=== PATIENT | female | born 1945 | race Native Hawaiian/Other Pacific Islander ===

== ENCOUNTER 2016-07-10 15:32 | Emergency (ER) | payer OTHER ==
[~2016-07-10] VITALS: Ht 162.6 cm; Wt 54.4 kg
[~2016-07-10 15:32] MED LIST: ALPR0.2566 PO; ATEN25TA21 PO; CIPR500T PO; CIPRO500 MG PO; COUMADIN5 MG PO; DIGO0.2549 PO; DIGOXIN0.25 MG PO; HYDR-3182 PO; LEVAQUIN500 MG OR; LEXAPRO10 MG PO; METO50TA27 PO; MIRAPEX0.25 MG PO; NEURONTIN 100M100 MG PO; OXYC5TAB53 PO; PRAMIPEXOLE0.5 MG PO; RANITIDINE 150150 MG PO; REQUIP XL2 MG PO; RYBIX ODT50 MG PO; SOTALOL AF80 MG PO; SYNTHROID175 MCG PO; TIZA4TAB5 PO; TOPAMAX100 MG PO; TOPAMAX50 MG PO; TRAM50TA PO; TRIM800T12 PO; VASOTEC10 MG PO; XARELTO20 MG PO
[2016-07-10 15:40] VITALS: TEMP 97.7
[2016-07-10 16:25] LABS: PLATELET COUNT 225 K/uL (152-353)
[2016-07-10 16:55] LABS: PARTIAL THROMBOPLASTIN TIME 22.7 SECONDS (24.5-33.6)
[2016-07-10 19:59] VITALS: BP 144/74
== END 2016-07-10 20:08 | disposition home or self-care (01) ==
LOC: ED 15:32
DX: M43.16 Spondylolisthesis, lumbar region (principal); M12.88 Other specific arthropathies, not elsewhere classified, other specified site; M54.31 Sciatica, right side
CPT/HCPCS: 36415; 80053; 85027; 85610; 85730; 99284

== ENCOUNTER 2016-08-11 12:01 | Emergency (ER) | payer OTHER ==
[~2016-08-11] VITALS: Ht 170.2 cm; Wt 54.9 kg
[2016-08-11 12:05] VITALS: TEMP 98.1
[2016-08-11 12:59] LABS: PLATELET COUNT 236 K/uL (152-353)
[2016-08-11 13:59] LABS: POTASSIUM 3.1 mmol/L (3.6-5.2); SODIUM 141 mmol/L (136-145)
[2016-08-11 14:45] VITALS: BP 148/72
== END 2016-08-11 14:45 | disposition home or self-care (01) ==
LOC: ED 12:01
DX: J06.9 Acute upper respiratory infection, unspecified (principal)
CPT/HCPCS: 80053; 85027; 87081; 87804; 87880; 96360; 96374; 96375; 99284; J1100; J1885

== ENCOUNTER 2016-10-15 11:48 | Observation (INO) | payer OTHER ==
[~2016-10-15] VITALS: Ht 170.2 cm; Wt 59.6 kg
[2016-10-15 12:00] VITALS: BP 129/96; TEMP 98
[2016-10-15 12:49] LABS: PLATELET COUNT 255 K/uL (152-353)
[2016-10-15 12:55] LABS: POTASSIUM 3.8 mmol/L (3.6-5.2); SODIUM 142 mmol/L (136-145)
[2016-10-15 13:00] VITALS: BP 168/80
[2016-10-15 13:29] LABS: PARTIAL THROMBOPLASTIN TIME 22.5 SECONDS (24.5-33.6)
[2016-10-15 14:00] VITALS: BP 180/79
[2016-10-15 14:45] VITALS: BP 166/78
[2016-10-15 16:19] VITALS: BP 151/84; TEMP 98.1; Ht 170.2 cm; Wt 59.6 kg
[2016-10-15] MEDS ORDERED: GABA300C2 PO (17:14)
[2016-10-15] MEDS ORDERED: CLON0.5T36 PO (17:16)
[2016-10-15] MEDS ORDERED: PRAMIPEXOLE1 MG PO (17:19)
[2016-10-15 20:00] VITALS: BP 131/65; TEMP 97.7
[2016-10-16] VITALS: BP 114/73; TEMP 97.5
[2016-10-16 04:00] VITALS: BP 122/62; TEMP 98.4
[2016-10-16 05:21] LABS: PLATELET COUNT 233 K/uL (152-353)
[2016-10-16 05:31] LABS: POTASSIUM 3.1 mmol/L (3.6-5.2); SODIUM 142 mmol/L (136-145)
[2016-10-16 08:00] VITALS: BP 123/69; TEMP 98
[2016-10-16 12:00] VITALS: BP 141/76; TEMP 97.7
--- NOTE | 2016-10-16 12:05 | NUR ---
BHAVESH WITH [facility] CALLED AND FACE SHEET FAXED REQUESTED. STATED SHE WOULD CALL NURSE BACK.
--- NOTE | 2016-10-16 14:00 | NUR ---
BHAVESH WITH [facility] CALLED BACK WITH ROOM ASSIGNMENT ROOM NUMBER [id number] PCU. EMS NOTIFIED AT THIS TIME
--- NOTE | 2016-10-16 14:51 | NUR ---
REPORT GIVEN TO BRADLEY AT [facility] IN [facility] AT THIS TIME.
--- NOTE | 2016-10-16 15:48 | NUR ---
PT LEFT VIA STRETCHER WITH EMS AT THIS TIME. NAD NOTED
== END 2016-10-16 15:50 | disposition short-term general hospital (02) ==
LOC: ED 11:48 → MED/SURG 14:10
PROVIDERS: Emergency Medicine
DX: R07.89 Other chest pain (principal); R53.1 Weakness; I48.2 Chronic atrial fibrillation; I10 Essential (primary) hypertension; M79.7 Fibromyalgia; E03.8 Other specified hypothyroidism
CPT/HCPCS: 36415; 80053; 81000; 82550; 82553; 83735; 84443; 84484; 85027; 85610; 85730; 86318; 93005; 94760; 96372; 96374; 99220; 99284; G0378; J1650

== ENCOUNTER 2016-10-16 15:57 | Outpatient (CLI) | payer OTHER ==
[~2016-10-16 15:57] MED LIST changes: +CLON0.5T36 PO; +GABA300C2 PO; +PRAMIPEXOLE1 MG PO
== END 2016-10-16 17:18 | disposition short-term general hospital (02) ==
LOC: AMB 15:57
DX: R07.89 Other chest pain (principal); R53.1 Weakness; I48.2 Chronic atrial fibrillation; I10 Essential (primary) hypertension; M79.7 Fibromyalgia; E03.8 Other specified hypothyroidism
CPT/HCPCS: A0425; A0427

== ENCOUNTER 2016-10-22 10:08 | Outpatient (CLI) | payer OTHER ==
[2016-10-22 10:58] LABS: POTASSIUM 4.7 mmol/L (3.6-5.2); SODIUM 141 mmol/L (136-145)
== END 2016-10-22 19:03 | disposition home or self-care (01) ==
LOC: LABW 10:08
PROVIDERS: Physician Assistant
DX: Z79.899 Other long term (current) drug therapy (principal); Z51.81 Encounter for therapeutic drug level monitoring
CPT/HCPCS: 36415; 80048

== ENCOUNTER 2016-11-12 11:06 | Outpatient (CLI) | payer OTHER ==
[2016-11-12 11:54] LABS: POTASSIUM 4.1 mmol/L (3.6-5.2); SODIUM 136 mmol/L (136-145)
== END 2016-11-12 12:10 | disposition home or self-care (01) ==
LOC: LABW 11:06
PROVIDERS: Internal Medicine Cardiovascular Disease
DX: I50.9 Heart failure, unspecified (principal); Z79.899 Other long term (current) drug therapy; Z51.81 Encounter for therapeutic drug level monitoring
CPT/HCPCS: 36415; 80048; 83880

== ENCOUNTER 2016-11-26 14:17 | Emergency (ER) | payer OTHER ==
[~2016-11-26] VITALS: Ht 170.2 cm; Wt 56.7 kg
[2016-11-26 14:30] VITALS: TEMP 97.7
[2016-11-26 15:06] LABS: PLATELET COUNT 310 K/uL (152-353)
[2016-11-26 15:28] LABS: POTASSIUM 3.3 mmol/L (3.6-5.2); SODIUM 139 mmol/L (136-145)
[2016-11-26 18:00] VITALS: BP 138/78
== END 2016-11-26 18:12 | disposition home or self-care (01) ==
LOC: ED 14:17
DX: I50.9 Heart failure, unspecified (principal)
CPT/HCPCS: 36415; 80053; 81000; 82550; 82553; 83880; 84484; 85027; 93005; 99283

== ENCOUNTER 2017-01-12 12:28 | Outpatient (CLI) | payer OTHER ==
[2017-01-12 13:20] LABS: PLATELET COUNT 268 K/uL (152-353)
[2017-01-12 13:40] LABS: POTASSIUM 4.5 mmol/L (3.6-5.2); SODIUM 139 mmol/L (136-145)
== END 2017-01-12 19:05 | disposition home or self-care (01) ==
LOC: LAB 12:28
PROVIDERS: Nurse Practitioner Family
DX: R79.89 Other specified abnormal findings of blood chemistry (principal); R00.2 Palpitations; D64.89 Other specified anemias; I10 Essential (primary) hypertension; E03.8 Other specified hypothyroidism; Z79.899 Other long term (current) drug therapy; Z51.81 Encounter for therapeutic drug level monitoring
CPT/HCPCS: 80053; 80061; 81000; 83036; 84436; 84443; 85027; 87086; 87088

== ENCOUNTER 2017-01-22 11:46 | Observation (INO) | payer OTHER ==
[~2017-01-22] VITALS: Ht 170.2 cm; Wt 59.9 kg
[2017-01-22 12:00] VITALS: BP 179/90; TEMP 97
[2017-01-22 12:58] LABS: PLATELET COUNT 241 K/uL (152-353)
[2017-01-22 13:18] LABS: POTASSIUM 3.4 mmol/L (3.6-5.2); SODIUM 138 mmol/L (136-145)
[2017-01-22 13:46] LABS: PARTIAL THROMBOPLASTIN TIME 21.6 SECONDS (24.5-33.6)
[2017-01-22 16:01] VITALS: BP 162/83; TEMP 97.8; Ht 170.2 cm; Wt 59.9 kg
== END 2017-01-22 17:25 | disposition left against medical advice (07) ==
LOC: ED 11:46 → MED/SURG 14:20
DX: R07.89 Other chest pain (principal); I48.91 Unspecified atrial fibrillation
CPT/HCPCS: 80053; 80162; 82550; 84484; 85027; 85610; 85730; 93005; 99220; 99284; G0378; J2405

== ENCOUNTER 2017-02-03 11:13 | Observation (INO) | payer OTHER ==
[~2017-02-03] VITALS: Ht 170.2 cm; Wt 61.0 kg
[2017-02-03 11:35] VITALS: BP 104/80; TEMP 98
[2017-02-03 12:23] LABS: PLATELET COUNT 274 K/uL (152-353)
[2017-02-03 12:30] VITALS: BP 149/89
[2017-02-03 12:57] LABS: POTASSIUM 3.6 mmol/L (3.6-5.2); SODIUM 137 mmol/L (136-145)
[2017-02-03 14:00] VITALS: BP 148/86
[2017-02-03 15:00] VITALS: BP 138/82
[2017-02-03 16:00] VITALS: BP 143/96
[2017-02-03 20:11] VITALS: BP 147/76; TEMP 98.6; Ht 170.2 cm; Wt 61.0 kg
[2017-02-03 21:31] LABS: PARTIAL THROMBOPLASTIN TIME 22.4 SECONDS (24.5-33.6)
[2017-02-04 02:14] VITALS: BP 140/81; TEMP 97.5
[2017-02-04 04:40] LABS: PLATELET COUNT 227 K/uL (152-353)
[2017-02-04 05:00] LABS: POTASSIUM 3.7 mmol/L (3.6-5.2); SODIUM 136 mmol/L (136-145)
[2017-02-04 09:15] VITALS: BP 142/70; TEMP 97.8
== END 2017-02-04 11:40 | disposition home or self-care (01) ==
LOC: ED 11:13 → MED/SURG 14:40
DX: R07.89 Other chest pain (principal); I10 Essential (primary) hypertension; I48.91 Unspecified atrial fibrillation; K21.9 Gastro-esophageal reflux disease without esophagitis; M79.7 Fibromyalgia; E03.8 Other specified hypothyroidism
CPT/HCPCS: 36415; 80053; 81000; 82550; 83735; 84443; 84484; 85027; 85610; 85730; 93005; 94760; 96374; 96376; 99220; 99284; G0378; J1885; J2405

== ENCOUNTER 2017-03-17 06:01 | Outpatient (CLI) | payer OTHER | END 2017-03-17 06:05 | disposition short-term general hospital (02) | LOC: AMB 06:01 | DX: R07.89 Other chest pain (principal); R00.2 Palpitations | CPT/HCPCS: A0425; A0427 ==

== ENCOUNTER 2017-03-17 06:09 | Observation (INO) | payer OTHER ==
[2017-03-17] VITALS (8 sets, daily range): BP systolic 89–131; BP diastolic 53–70; TEMP 98.2–98.6; Ht 170.2 cm; Wt 62.7 kg
[~2017-03-17] VITALS: Ht 170.2 cm; Wt 62.7 kg
[2017-03-17 06:44] LABS: PLATELET COUNT 251 K/uL (152-353)
[2017-03-17 06:49] LABS: POTASSIUM 4.2 mmol/L (3.6-5.2); SODIUM 132 mmol/L (136-145)
[2017-03-18] VITALS: BP 104/56; TEMP 98.5
[2017-03-18 04:00] VITALS: BP 109/59; TEMP 98.7
[2017-03-18 05:34] LABS: PLATELET COUNT 215 K/uL (152-353)
[2017-03-18 05:53] LABS: POTASSIUM 3.5 mmol/L (3.6-5.2); SODIUM 137 mmol/L (136-145)
[2017-03-18 08:00] VITALS: BP 117/65; TEMP 97.8
[2017-03-18 12:00] VITALS: BP 110/63; TEMP 97.8
== END 2017-03-18 16:45 | disposition home or self-care (01) ==
LOC: ED 06:09 → MED/SURG 09:13
PROVIDERS: Specialist; ADMIT Family Medicine
DX: R07.89 Other chest pain (principal); R06.02 Shortness of breath; R53.1 Weakness
CPT/HCPCS: 36415; 80053; 81000; 82550; 83880; 84484; 85027; 85379; 85610; 85730; 96360; 96361; 96374; 99220; 99284; G0378; J1170; J1940; J2175; J2405; Q9963

== ENCOUNTER 2017-05-07 07:28 | Outpatient (CLI) | payer OTHER ==
[~2017-05-07] VITALS: Ht 170.2 cm; Wt 57.2 kg
== END 2017-05-07 19:18 | disposition home or self-care (01) ==
LOC: NM 07:28
DX: R07.89 Other chest pain (principal)
CPT/HCPCS: A9500; J2785

== ENCOUNTER 2017-07-21 02:01 | Observation (INO) | payer OTHER ==
[2017-07-21] VITALS (17 sets, daily range): BP systolic 107–154; BP diastolic 52–92; TEMP 97.5–98.6; Ht 170.2 cm; Wt 60.0 kg
[~2017-07-21] VITALS: Ht 170.2 cm; Wt 60.0 kg
[2017-07-21 02:58] LABS: PLATELET COUNT 250 K/uL (152-353)
[2017-07-21 03:38] LABS: POTASSIUM 3.7 mmol/L (3.6-5.2)
--- NOTE | 2017-07-21 08:20 | NUR ---
DR REID IN TO SEE PT
--- NOTE | 2017-07-21 11:50 | NUR ---
PT OOB AND INTO ANOTHER PTS AREA, PT STATES THAT SHE THOUGHT SHE HEARD A BABYS VOICE. PT WAS INSTRUCTED THAT THERE WAS NO BABY IN HERE. ATTEMPTED TO GET PT BACK INTO BED, PT STATED THAT SHE WANTED TO GO TO BATHROOM. PT WAS TOLD THAT SHE HAD A BSC, PT STATED THAT SHE WANTED TO GO TO BATHROOM AND THAT SHE WAS OF AND THAT SHE DID NOT NEED ANY HELP, PT PULLED AWAY FROM ME AND WENT INTO BATHROOM. PT OUT OF BATHROOM, SHE STATES THAT SHE IS OK AND NEEDS TO WALK AROUND, SAYS THAT IF SHE DOESNT GET UP SHE WILL NEVER GET RID OF THIS DIZZINESS, PT WAS INSTRUCTED THAT SHE DID NOT NEED TO BE UP W/O ASSIST BECAUSE OF THE RISK OF FALLING DUE TO DIZZINESS. PT SAID THAT SHE WAS FINE AND DIDNT NEED HELP.
[2017-07-21] MEDS ORDERED: SPIRONOLACT25 MG PO (15:17)
[2017-07-21] MEDS ORDERED: GABA100C2 PO (15:20)
[2017-07-21] MEDS ORDERED: TRAM50TA PO (15:24)
[2017-07-21] MEDS ORDERED: DIGOXIN0.25 MG PO (15:25)
[2017-07-21] MEDS ORDERED: FLUTICASONE50 MCG (15:27)
[2017-07-21] MEDS ORDERED: BENZONATATE100 MG PO (15:29)
[2017-07-21] MEDS ORDERED: Z-PAK PO (15:31)
--- NOTE | 2017-07-21 16:54 | NUR ---
ASSISTED PT TO AND FROM RESTROOM, PT USING ICU WALKER JUST FOR SAFETY
[2017-07-22] VITALS (15 sets, daily range): BP systolic 81–161; BP diastolic 64–99; TEMP 98–98.2
--- NOTE | 2017-07-22 08:00 | NUR ---
PATIENTS DAUGHTER AND SON AT BEDSIDE. PATIENT APPEARS CONFUSED.
[2017-07-22 10:20] LABS: PLATELET COUNT 216 K/uL (152-353)
--- NOTE | 2017-07-22 10:52 | NUR ---
HALDOL 5 MG IV GIVEN TO PROMOTE SLEEP IN PATIENT PER DR. MALAGON . PATIENT HAS NOT SLEPT IN DAYS AND IS CONFUSED.
--- NOTE | 2017-07-22 16:00 | NUR ---
PATIENT TO CT
--- NOTE | 2017-07-22 17:00 | NUR ---
DR. WILSON SHOWN CT REPORT. DR. WILSON GAVE ORDERS TO DISCHARGE PATIENT TO HOME.
--- NOTE | 2017-07-22 17:30 | NUR ---
DR. MALAGON AT PATIENTS BEDSIDE SPEAKING WITH PATIENT AND FAMILY
--- NOTE | 2017-07-22 18:33 | NUR ---
PATIENT AWAKE USING BED SIDE COMMODE.
--- NOTE | 2017-07-22 21:08 | NUR ---
PT D/C TO HOME WITH DAUGHTERS. DISCHARGE INSTRUCTIONS GIVEN. PT TO FOLLOW UP WITH PCP NEEDED.
--- NOTE | 2017-07-22 21:08 | NUR ---
PT IN BED RESTING WITH EYES CLOSED. NO S/S OF DISTRESS NOTED. PT TO BE D/C.
== END 2017-07-22 21:05 | disposition home or self-care (01) ==
LOC: ED 02:01 → ICU 03:45
PROVIDERS: Family Medicine
DX: R07.89 Other chest pain (principal); Z72.820 Sleep deprivation; I25.10 Atherosclerotic heart disease of native coronary artery without angina pectoris; R41.82 Altered mental status, unspecified
CPT/HCPCS: 36415; 80053; 81000; 82550; 82553; 83880; 84484; 85027; 85379; 85610; 85730; 93005; 96372; 96374; 96375; 99220; 99284; G0378; J1630; J1650; J2175; J2270; J2405; Q9963

== ENCOUNTER 2017-10-17 12:57 | Emergency (ER) | payer OTHER ==
[~2017-10-17] VITALS: Ht 170.2 cm; Wt 54.4 kg
[~2017-10-17 12:57] MED LIST changes: +BENZONATATE100 MG PO; +FLUTICASONE50 MCG; +GABA100C2 PO; +SPIRONOLACT25 MG PO; +Z-PAK PO
[2017-10-17 13:32] VITALS: BP 142/76; TEMP 98.6
[2017-10-17 14:30] LABS: PLATELET COUNT 251 K/uL (152-353)
== END 2017-10-17 16:08 | disposition home or self-care (01) ==
LOC: ED 12:57
DX: G43.909 Migraine, unspecified, not intractable, without status migrainosus (principal); Z79.899 Other long term (current) drug therapy
CPT/HCPCS: 80053; 80307; 81000; 84484; 85027; 93005; 96374; 96375; 99283; J1885; J2405

== ENCOUNTER 2017-12-30 13:33 | Emergency (ER) | payer OTHER ==
[~2017-12-30] VITALS: Ht 170.2 cm; Wt 54.4 kg
[2017-12-30 13:30] VITALS: BP 151/94; TEMP 98.7
[2017-12-30 15:18] LABS: PLATELET COUNT 237 K/uL (152-353)
[2017-12-30 15:25] LABS: POTASSIUM 3.9 mmol/L (3.6-5.2); SODIUM 139 mmol/L (136-145)
== END 2017-12-30 17:35 | disposition home or self-care (01) ==
LOC: ED 13:33
PROVIDERS: Emergency Medicine
DX: R42 Dizziness and giddiness (principal)
CPT/HCPCS: 36415; 80053; 82550; 82553; 84484; 85027; 93005; 96360; 99284

== ENCOUNTER 2018-04-12 21:23 | Emergency (ER) | payer OTHER ==
[~2018-04-12] VITALS: Ht 170.2 cm; Wt 54.4 kg
[2018-04-12 22:05] LABS: PLATELET COUNT 298 K/uL (152-353)
[2018-04-12 22:18] LABS: POTASSIUM 3.9 mmol/L (3.6-5.2); SODIUM 139 mmol/L (136-145)
[2018-04-12 23:56] VITALS: BP 146/78; TEMP 97.3
== END 2018-04-12 23:59 | disposition home or self-care (01) ==
LOC: ED 21:23
PROVIDERS: Family Medicine
DX: J43.8 Other emphysema (principal); M94.0 Chondrocostal junction syndrome [Tietze]; R05 Cough
CPT/HCPCS: 36415; 80053; 81000; 82550; 84484; 85027; 87502; 93005; 96374; 99284; J2175; J2405

== ENCOUNTER 2018-06-11 15:18 | Emergency (ER) | payer OTHER ==
[~2018-06-11] VITALS: Ht 170.2 cm; Wt 54.4 kg
[2018-06-11 17:08] LABS: PLATELET COUNT 280 K/uL (152-353)
[2018-06-11 17:19] LABS: POTASSIUM 3.3 mmol/L (3.6-5.2)
[2018-06-11 19:48] VITALS: BP 139/85; TEMP 97.5
== END 2018-06-11 19:54 | disposition short-term general hospital (02) ==
LOC: ED 15:18
PROVIDERS: Emergency Medicine
DX: T82.118A Breakdown (mechanical) of other cardiac electronic device, initial encounter (principal); I48.92 Unspecified atrial flutter
CPT/HCPCS: 36415; 80053; 82550; 83735; 84484; 85027; 85610; 93005; 96360; 99284

== ENCOUNTER 2018-08-03 09:31 | Outpatient (CLI) | payer OTHER | END 2018-08-03 22:46 | disposition home or self-care (01) | LOC: US 09:31 | DX: M79.604 Pain in right leg (principal) ==

== ENCOUNTER 2018-08-19 10:36 | Outpatient (CLI) | payer OTHER | END 2018-08-19 19:53 | disposition home or self-care (01) | LOC: LABW 10:36 | PROVIDERS: Internal Medicine Cardiovascular Disease | DX: Z79.899 Other long term (current) drug therapy (principal); R06.02 Shortness of breath | CPT/HCPCS: 36415; 80048; 83880 ==

== ENCOUNTER 2018-09-28 11:18 | Outpatient (CLI) | payer OTHER | END 2018-09-28 11:50 | disposition short-term general hospital (02) | LOC: AMB 11:18 | DX: R07.89 Other chest pain (principal); R06.02 Shortness of breath | CPT/HCPCS: A0425; A0427 ==

== ENCOUNTER 2018-12-09 20:49 | Observation (INO) | payer OTHER ==
[~2018-12-09] VITALS: Ht 170.2 cm; Wt 65.9 kg
[2018-12-09 20:58] VITALS: BP 139/82; TEMP 97.5
[2018-12-09 21:45] VITALS: BP 148/75
[2018-12-09 21:55] LABS: PLATELET COUNT 224 K/uL (152-353)
[2018-12-09 22:11] LABS: POTASSIUM 4.5 mmol/L (3.6-5.2); SODIUM 139 mmol/L (136-145)
[2018-12-09 22:15] VITALS: BP 116/71
[2018-12-09 22:45] VITALS: BP 118/79
[2018-12-09 23:15] VITALS: BP 119/83
[2018-12-09] MEDS ORDERED: PANTOPRAZOLE 40MG TA PO (23:22)
[2018-12-09] MEDS ORDERED: ESCI10TA PO (23:26)
[2018-12-09] MEDS ORDERED: LIPITOR10 MG PO (23:27)
[2018-12-10] VITALS (7 sets, daily range): BP systolic 111–144; BP diastolic 60–73; TEMP 97.4–98.4; Ht 170.2 cm; Wt 65.9 kg
[2018-12-10 14:33] LABS: PLATELET COUNT 205 K/uL (152-353)
[2018-12-10 15:46] LABS: POTASSIUM 3.8 mmol/L (3.6-5.2)
[2018-12-11 03:31] LABS: PLATELET COUNT 201 K/uL (152-353)
[2018-12-11 03:45] LABS: POTASSIUM 3.7 mmol/L (3.6-5.2)
[2018-12-11 04:00] VITALS: BP 115/57; TEMP 98.1
[2018-12-11 08:00] VITALS: BP 138/61; TEMP 97.6
[2018-12-11 12:00] VITALS: BP 138/61; TEMP 97.6
== END 2018-12-11 14:40 | disposition home or self-care (01) ==
LOC: ED 20:49 → MED/SURG 22:50
PROVIDERS: Emergency Medicine; ADMIT Family Medicine
DX: R60.9 Edema, unspecified (principal); R79.89 Other specified abnormal findings of blood chemistry; I48.91 Unspecified atrial fibrillation; I45.81 Long QT syndrome; M79.605 Pain in left leg; M79.604 Pain in right leg; I25.10 Atherosclerotic heart disease of native coronary artery without angina pectoris; I10 Essential (primary) hypertension; E11.9 Type 2 diabetes mellitus without complications; F32.3 Major depressive disorder, single episode, severe with psychotic features; R07.89 Other chest pain; R53.1 Weakness
CPT/HCPCS: 36415; 80053; 80162; 81000; 82550; 83735; 84100; 84443; 84484; 84550; 85027; 85379; 85651; 93005; 96366; 96372; 96374; 99220; 99284; G0378; J1650; J1940

== ENCOUNTER 2019-01-05 14:04 | Outpatient (CLI) | payer OTHER ==
[~2019-01-05 14:04] MED LIST changes: +ESCI10TA PO; +LIPITOR10 MG PO; +PANTOPRAZOLE 40MG TA PO
[2019-01-05 14:33] LABS: POTASSIUM 3.6 mmol/L (3.6-5.2)
== END 2019-01-05 20:14 | disposition home or self-care (01) ==
LOC: LABW 14:04
PROVIDERS: Internal Medicine Cardiovascular Disease
DX: Z79.899 Other long term (current) drug therapy (principal)
CPT/HCPCS: 36415; 80048

== ENCOUNTER 2019-01-26 11:00 | Outpatient (CLI) | payer OTHER | END 2019-01-26 23:00 | disposition home or self-care (01) | LOC: RESP 11:00 | DX: I50.9 Heart failure, unspecified (principal) | CPT/HCPCS: 93306 ==

== ENCOUNTER 2019-01-27 15:17 | Emergency (ER) | payer OTHER ==
[~2019-01-27] VITALS: Ht 170.2 cm; Wt 61.2 kg
[2019-01-27 15:35] VITALS: TEMP 98.7
[2019-01-27 18:10] VITALS: BP 172/89
== END 2019-01-27 18:10 | disposition home or self-care (01) ==
LOC: ED 15:17
DX: M79.604 Pain in right leg (principal); M79.605 Pain in left leg
CPT/HCPCS: 99282

== ENCOUNTER 2019-04-06 03:13 | Emergency (ER) | payer OTHER ==
[~2019-04-06] VITALS: Ht 170.2 cm; Wt 63.5 kg
[2019-04-06 05:00] VITALS: BP 138/65; TEMP 98.3
== END 2019-04-06 05:13 | disposition home or self-care (01) ==
LOC: ED 03:13
PROC: 0RSDXZZ Reposition Left Temporomandibular Joint, External Approach (ICD-10-PCS; principal; 2019-04-06)
PROC: 0RSCXZZ Reposition Right Temporomandibular Joint, External Approach (ICD-10-PCS; 2019-04-06)
DX: R68.84 Jaw pain (principal); S03.03XA Dislocation of jaw, bilateral, initial encounter
CPT/HCPCS: 96374; 96375; 99284; J1885; J2704

== ENCOUNTER 2019-10-03 10:13 | Emergency (ER) | payer OTHER ==
[~2019-10-03] VITALS: Ht 170.2 cm; Wt 72.6 kg
[2019-10-03 11:08] LABS: PLATELET COUNT 237 K/uL (152-353)
[2019-10-03 11:12] LABS: POTASSIUM 3.9 mmol/L (3.6-5.2); SODIUM 140 mmol/L (136-145)
[2019-10-03 14:33] VITALS: BP 135/77; TEMP 98
== END 2019-10-03 15:04 | disposition short-term general hospital (02) ==
LOC: ED 10:13
PROVIDERS: Family Medicine
DX: I50.9 Heart failure, unspecified (principal); R79.89 Other specified abnormal findings of blood chemistry
CPT/HCPCS: 80053; 81000; 82550; 82553; 83605; 83880; 84484; 85027; 85379; 93005; 99284

== ENCOUNTER 2019-11-02 13:23 | Outpatient (CLI) | payer OTHER ==
[2019-11-02 17:53] LABS: POTASSIUM 3.5 mmol/L (3.6-5.2)
== END 2019-11-02 20:27 | disposition home or self-care (01) ==
LOC: LABW 13:23
PROVIDERS: Internal Medicine Cardiovascular Disease
DX: Z79.899 Other long term (current) drug therapy (principal); R06.02 Shortness of breath
CPT/HCPCS: 36415; 80048; 83880

== ENCOUNTER 2019-11-23 11:21 | Outpatient (CLI) | payer OTHER | END 2019-11-23 19:45 | disposition home or self-care (01) | LOC: LABW 11:21 | DX: I50.9 Heart failure, unspecified (principal); Z79.899 Other long term (current) drug therapy | CPT/HCPCS: 36415; 83880 ==

== ENCOUNTER 2019-11-24 11:18 | Outpatient (CLI) | payer OTHER ==
[2019-11-24 11:46] LABS: POTASSIUM 4.2 mmol/L (3.6-5.2)
== END 2019-11-24 20:08 | disposition home or self-care (01) ==
LOC: LAB 11:18
PROVIDERS: Internal Medicine Cardiovascular Disease
DX: I50.9 Heart failure, unspecified (principal); Z79.899 Other long term (current) drug therapy
CPT/HCPCS: 36415; 80048

== ENCOUNTER 2020-03-09 09:02 | Outpatient (CLI) | payer OTHER | END 2020-03-09 19:28 | disposition home or self-care (01) | LOC: RAD 09:02 | PROVIDERS: ATTEND Family Medicine | DX: M25.561 Pain in right knee (principal); M25.562 Pain in left knee; I48.91 Unspecified atrial fibrillation | CPT/HCPCS: 93005 ==

== ENCOUNTER 2020-03-27 17:08 | Observation (INO) | payer OTHER ==
[~2020-03-27] VITALS: Ht 170.2 cm; Wt 83.0 kg
[2020-03-27 19:10] LABS: PLATELET COUNT 271 K/uL (152-353)
[2020-03-27 19:38] LABS: PARTIAL THROMBOPLASTIN TIME 22.1 SECONDS (24.5-33.6)
[2020-03-28] VITALS: BP 143/75; TEMP 98.4
[2020-03-28] MEDS ORDERED: ASPIRIN 8181 MG PO (01:57)
[2020-03-28] MEDS ORDERED: GABA300C2 PO (01:57)
[2020-03-28] MEDS ORDERED: TOPIRAMATE50 MG PO (01:59)
[2020-03-28] MEDS ORDERED: BUMEX1 MG PO (01:59)
[2020-03-28] MEDS ORDERED: METO50TA63 PO (02:01)
[2020-03-28] MEDS ORDERED: MIRAPEX1 MG PO (02:02)
[2020-03-28 02:09] VITALS: BP 143/75; TEMP 98.4
[2020-03-28 04:00] VITALS: BP 142/72; TEMP 98.3
[2020-03-28 08:00] VITALS: BP 120/81; TEMP 98.4
[2020-03-28 08:27] LABS: PLATELET COUNT 241 K/uL (152-353)
[2020-03-28 09:09] LABS: POTASSIUM 3.5 mmol/L (3.6-5.2)
[2020-03-28 11:48] VITALS: BP 160/73; TEMP 98.3
== END 2020-03-28 11:40 | disposition home or self-care (01) ==
LOC: MED/SURG 17:08
PROVIDERS: ADMIT Family Medicine; ATTEND Family Medicine
DX: I48.91 Unspecified atrial fibrillation (principal); E86.0 Dehydration
CPT/HCPCS: 80053; 80162; 81000; 82550; 82553; 83735; 84100; 84484; 85027; 85610; 85730; 93005; 94760; 96365; 96366; 96374; 99220; G0378; G0379; J1644; J1885

== ENCOUNTER 2020-06-26 10:17 | Outpatient (CLI) | payer OTHER ==
[~2020-06-26 10:17] MED LIST changes: +ASPIRIN 8181 MG PO; +BUMEX1 MG PO; +METO50TA63 PO; +MIRAPEX1 MG PO; +TOPIRAMATE50 MG PO
== END 2020-06-26 19:18 | disposition home or self-care (01) ==
LOC: RAD 10:17
PROVIDERS: ATTEND Physician Assistant
DX: M25.551 Pain in right hip (principal); M54.5 Low back pain

== ENCOUNTER 2020-07-18 11:52 | Emergency (ER) | payer OTHER ==
[~2020-07-18] VITALS: Ht 170.2 cm; Wt 72.6 kg
[2020-07-18 12:12] VITALS: TEMP 98.5
[2020-07-18 13:08] LABS: PLATELET COUNT 240 K/uL (152-353)
[2020-07-18 13:26] LABS: PARTIAL THROMBOPLASTIN TIME 21.7 SECONDS (24.5-33.6)
[2020-07-18 13:34] LABS: POTASSIUM 3.8 mmol/L (3.6-5.2); SODIUM 138 mmol/L (136-145)
[2020-07-18 16:01] VITALS: BP 123/74
== END 2020-07-18 16:03 | disposition home or self-care (01) ==
LOC: ED 11:52
PROVIDERS: Family Medicine
DX: I48.91 Unspecified atrial fibrillation (principal); Z95.0 Presence of cardiac pacemaker
CPT/HCPCS: 80053; 81000; 82550; 84443; 84484; 85027; 85610; 85730; 93005; 99283

== ENCOUNTER 2020-07-31 09:28 | Outpatient (CLI) | payer OTHER ==
[2020-07-31 09:51] LABS: POTASSIUM 3.5 mmol/L (3.6-5.2)
== END 2020-07-31 21:08 | disposition home or self-care (01) ==
LOC: LABW 09:28
PROVIDERS: ATTEND Internal Medicine Cardiovascular Disease
DX: Z79.899 Other long term (current) drug therapy (principal); R06.02 Shortness of breath
CPT/HCPCS: 36415; 80048; 83735; 83880

== ENCOUNTER 2020-08-10 10:06 | Outpatient (CLI) | payer OTHER | END 2020-08-10 20:54 | disposition home or self-care (01) | LOC: CT 10:06 | PROVIDERS: ATTEND Physician Assistant | DX: M54.5 Low back pain (principal) ==

== ENCOUNTER 2020-08-28 14:49 | Emergency (ER) | payer OTHER ==
[2020-08-28] VITALS (12 sets, daily range): BP systolic 112–162; BP diastolic 63–99; TEMP 97.1
[~2020-08-28] VITALS: Ht 170.2 cm; Wt 72.6 kg
[2020-08-28 15:23] LABS: PLATELET COUNT 281 K/uL (152-353)
[2020-08-28 15:29] LABS: POTASSIUM 3.6 mmol/L (3.6-5.2); SODIUM 140 mmol/L (136-145)
[2020-08-28 15:41] LABS: PARTIAL THROMBOPLASTIN TIME 22.2 SECONDS (24.5-33.6)
== END 2020-08-28 22:00 | disposition left against medical advice (07) ==
LOC: ED 14:49 → MED/SURG 19:30 → ED 19:30
PROVIDERS: Family Medicine
DX: I20.9 Angina pectoris, unspecified (principal); R06.02 Shortness of breath; Z20.822 Contact with and (suspected) exposure to COVID-19
CPT/HCPCS: 80053; 81000; 82550; 83880; 84484; 85027; 85610; 85730; 87635; 93005; 99283; U0003

== ENCOUNTER 2020-11-03 14:57 | Emergency (ER) | payer OTHER ==
[~2020-11-03] VITALS: Ht 170.2 cm; Wt 77.1 kg
[2020-11-03 16:26] LABS: PLATELET COUNT 302 K/uL (152-353)
[2020-11-03 16:33] LABS: POTASSIUM 3.8 mmol/L (3.6-5.2); SODIUM 141 mmol/L (136-145)
[2020-11-03 16:42] LABS: PARTIAL THROMBOPLASTIN TIME 22.5 SECONDS (24.5-33.6)
[2020-11-03 17:16] VITALS: BP 163/104; TEMP 98.3
== END 2020-11-03 17:20 | disposition home or self-care (01) ==
LOC: ED 14:57
PROVIDERS: Emergency Medicine
DX: S20.211A Contusion of right front wall of thorax, initial encounter (principal); S83.8X1A Sprain of other specified parts of right knee, initial encounter; I48.91 Unspecified atrial fibrillation; R06.89 Other abnormalities of breathing; W18.09XA Striking against other object with subsequent fall, initial encounter; Y92.098 Other place in other non-institutional residence as the place of occurrence of the external cause
CPT/HCPCS: 36415; 80053; 82550; 83880; 84484; 85027; 85610; 85730; 93005; 99283

== ENCOUNTER 2021-05-15 17:59 | Emergency (ER) | payer OTHER ==
[~2021-05-15] VITALS: Ht 170.2 cm; Wt 79.4 kg
[2021-05-15 19:38] LABS: PLATELET COUNT 230 K/uL (152-353)
[2021-05-15 19:53] LABS: POTASSIUM 4.2 mmol/L (3.6-5.2)
[2021-05-15 20:50] VITALS: BP 128/72; TEMP 98.4
== END 2021-05-15 20:50 | disposition home or self-care (01) ==
LOC: ED 17:59
PROVIDERS: Hospitalist
DX: L03.113 Cellulitis of right upper limb (principal)
CPT/HCPCS: 36415; 80053; 83605; 84484; 85027; 87040; 93005; 96365; 96375; 99284; J1885; J3370

== ENCOUNTER 2021-09-14 10:47 | Emergency (ER) | payer OTHER ==
[~2021-09-14] VITALS: Ht 170.2 cm; Wt 79.4 kg
[2021-09-14 11:01] VITALS: TEMP 99
[2021-09-14 12:04] LABS: PLATELET COUNT 171 K/uL (152-353)
[2021-09-14 12:32] LABS: PARTIAL THROMBOPLASTIN TIME 24.5 SECONDS (24.5-33.6)
[2021-09-14 12:43] LABS: POTASSIUM 3.6 mmol/L (3.6-5.2)
[2021-09-14 13:55] VITALS: BP 124/72
== END 2021-09-14 17:20 | disposition short-term general hospital (02) ==
LOC: ED 10:47
PROVIDERS: Family Medicine
DX: R06.09 Other forms of dyspnea (principal); J44.1 Chronic obstructive pulmonary disease with (acute) exacerbation; R79.89 Other specified abnormal findings of blood chemistry; Z11.52 Encounter for screening for COVID-19; I48.91 Unspecified atrial fibrillation
CPT/HCPCS: 80053; 82550; 83880; 84484; 85027; 85379; 85610; 85730; 87635; 87651; 93005; 94664; 94760; 96372; 99284; J2930; U0003

== ENCOUNTER 2022-01-08 11:11 | Outpatient (CLI) | payer OTHER ==
[2022-01-08 11:40] LABS: POTASSIUM 4.7 mmol/L (3.6-5.2)
== END 2022-01-08 19:21 | disposition home or self-care (01) ==
LOC: LABW 11:11
PROVIDERS: ATTEND Internal Medicine Cardiovascular Disease
DX: I50.9 Heart failure, unspecified (principal); Z79.899 Other long term (current) drug therapy
CPT/HCPCS: 36415; 80048; 83880

== ENCOUNTER 2022-02-26 12:45 | Outpatient (CLI) | payer OTHER, MEDICARE | END 2022-02-26 19:14 | disposition home or self-care (01) | LOC: RESP 12:45 | PROVIDERS: ATTEND Internal Medicine Cardiovascular Disease | DX: I50.9 Heart failure, unspecified (principal) ==

== ENCOUNTER 2022-06-18 09:55 | Outpatient (CLI) | payer OTHER, MEDICARE | END 2022-06-18 19:14 | disposition home or self-care (01) | LOC: US 09:55 | PROVIDERS: ATTEND Nurse Practitioner Primary Care | DX: R31.9 Hematuria, unspecified (principal) | CPT/HCPCS: 51798 ==

== ENCOUNTER 2022-07-10 19:35 | Observation (INO) | payer OTHER, MEDICARE ==
[~2022-07-10] VITALS: Ht 170.2 cm; Wt 83.2 kg
[~2022-07-10 19:35] MED LIST changes: +BUME1TAB19 PO; -BUMEX1 MG PO; +LEVO-T150 MCG PO; -MIRAPEX1 MG PO; +PRAMIPEXOLE1.5 MG PO; -SYNTHROID175 MCG PO
[2022-07-10 20:03] VITALS: BP 120/56; TEMP 98.7
[2022-07-10 20:59] LABS: PLATELET COUNT 240 K/uL (152-353)
[2022-07-10 21:10] LABS: POTASSIUM 4.7 mmol/L (3.6-5.2)
[2022-07-10 21:21] LABS: PARTIAL THROMBOPLASTIN TIME 25.9 SECONDS (24.5-33.6)
[2022-07-10 22:57] VITALS: BP 134/69; TEMP 97.3; Ht 170.2 cm; Wt 83.2 kg
[2022-07-11 03:45] VITALS: BP 125/59; TEMP 97.4
[2022-07-11 05:16] LABS: POTASSIUM 4.4 mmol/L (3.6-5.2)
[2022-07-11 08:00] VITALS: BP 142/76; TEMP 97.4
[2022-07-11] MEDS ORDERED: ELIQUIS5 MG PO (10:29)
[2022-07-11] MEDS ORDERED: SPIRONOLACT25 MG PO (10:29)
[2022-07-11] MEDS ORDERED: FARXIGA10 MG PO (10:30)
[2022-07-11] MEDS ORDERED: GABA300C2 PO (10:45)
[2022-07-11 12:09] VITALS: BP 114/48; TEMP 98
== END 2022-07-11 17:15 | disposition home or self-care (01) ==
LOC: ED 19:35 → MED/SURG 21:30
PROVIDERS: ADMIT Emergency Medicine; ATTEND Internal Medicine
DX: E87.1 Hypo-osmolality and hyponatremia (principal); I95.89 Other hypotension; R42 Dizziness and giddiness; E86.0 Dehydration; I48.91 Unspecified atrial fibrillation; Z79.01 Long term (current) use of anticoagulants; E03.8 Other specified hypothyroidism; F32.A Depression, unspecified; I10 Essential (primary) hypertension; G25.81 Restless legs syndrome; K21.9 Gastro-esophageal reflux disease without esophagitis; F41.8 Other specified anxiety disorders; M15.8 Other polyosteoarthritis; M79.7 Fibromyalgia; G62.89 Other specified polyneuropathies; N28.9 Disorder of kidney and ureter, unspecified; R07.89 Other chest pain
CPT/HCPCS: 36415; 80048; 80053; 83880; 84443; 84484; 85027; 85379; 85610; 85730; 93005; 96361; 96365; 99221; 99284; G0378

== ENCOUNTER 2022-08-13 13:47 | Outpatient (CLI) | payer OTHER, MEDICARE ==
[~2022-08-13 13:47] MED LIST changes: +ELIQUIS5 MG PO; +FARXIGA10 MG PO
== END 2022-08-13 18:58 | disposition home or self-care (01) ==
LOC: LAB 13:47
PROVIDERS: ATTEND Nurse Practitioner Primary Care
DX: R19.7 Diarrhea, unspecified (principal)
CPT/HCPCS: 83630; 87015; 87045; 87324; 87328; 87329; 87449; 87899

== ENCOUNTER 2022-10-15 12:23 | Outpatient (CLI) | payer OTHER, MEDICARE ==
[2022-10-15 13:13] LABS: PLATELET COUNT 258 K/uL (152-353)
[2022-10-15 13:39] LABS: POTASSIUM 3.8 mmol/L (3.6-5.2)
== END 2022-10-15 20:09 | disposition home or self-care (01) ==
LOC: LABW 12:23
PROVIDERS: ATTEND Internal Medicine Cardiovascular Disease
DX: Z79.899 Other long term (current) drug therapy (principal); I50.9 Heart failure, unspecified; E55.9 Vitamin D deficiency, unspecified; E53.8 Deficiency of other specified B group vitamins
CPT/HCPCS: 36415; 80053; 82607; 83880; 84436; 84443; 84480; 85027